=== PATIENT | female | born 1970 | race Caucasian/White ===

== ENCOUNTER 2017-01-22 13:33 | Emergency (ER) | payer BC ==
[~2017-01-22] VITALS: Ht 160 cm; Wt 70.0 kg
[~2017-01-22 13:33] MED LIST: AMIO200T2 PO; ASPI-535 PO; LEVO50TA74 PO; PARO20TA58 PO
[2017-01-22 13:37] VITALS: Ht 160 cm; Wt 70.0 kg
[2017-01-22] MEDS ORDERED: ONDANSETRON (ODT) 4 MG TAB ODT STA (13:51)
[2017-01-22] MEDS ORDERED: IBUPROFEN 200 MG TAB PO ONE (14:00)
[2017-01-22] MEDS ORDERED: HYDROCODONE/APAP (5/325) TAB PO ONE (14:00)
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
--- NOTE | 2017-01-22 15:29 | RADRPT ---
PROCEDURE: XR cervical spine CLINICAL INDICATION: The seen TECHNIQUE: 2 radiographs were obtained of the cervical spine. COMPARISON: None FINDINGS: The study is limited in that the odontoid and C1 are not included in the lateral projection and are not adequately seen on the frontal projection . Alignment: is normal without subluxation. The atlantoaxial relationship is not evaluated. Disk spaces: There is relative loss of disk height at C6-C7 and C7-T1 with mild anterior and posteri or spondylosis on the endplates. Osseous structures : appear intact with no fracture or destructive process identified. Soft tissues: are unremarkable. IMPRESSION: 1. Limited study due to lack of visualization of C1 as well as superior C2. 2. Degenerative disk and endplate changes noted at C6-C7 and at C7-T1. 3. No fracture is seen within the visualized osseous elements and the visualized osseous elements a lign satisfactorily. Physician Mami Date Time Electronically viewed and signed by Physician Mami on 01/22/2017 15:29 /
[2017-01-22] MEDS ORDERED: IBUP400T22 PO (15:36)
[2017-01-22] MEDS ORDERED: DOCU-144 PO (15:36)
[2017-01-22] MEDS ORDERED: HYDR-906 PO (15:36)
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
== END 2017-01-22 15:55 | disposition home or self-care (01) ==
LOC: FTE 13:33
DX: S49.92XA Unspecified injury of left shoulder and upper arm, initial encounter (principal); R07.9 Chest pain, unspecified; V49.40XA Driver injured in collision with unspecified motor vehicles in traffic accident, initial encounter; Z79.82 Long term (current) use of aspirin
CPT/HCPCS: 29125; 71010; 72040; 73060; 73110; Z7610

== ENCOUNTER 2017-05-04 13:08 | Emergency (ER) | payer BC ==
[~2017-05-04] VITALS: Ht 162.6 cm; Wt 57.0 kg
[~2017-05-04 13:08] MED LIST changes: +DOCU-144 PO; +HYDR-906 PO; +IBUP400T22 PO
[2017-05-04 13:09] VITALS: Ht 162.6 cm; Wt 57.0 kg
[2017-05-04] MEDS ORDERED: AMO500 PO (14:39)
[2017-05-04] MEDS ORDERED: IBUP400T22 PO (14:39)
--- NOTE | 2017-05-05 06:32 | ERD ---
ER Documentation Chief Complaint Date/Time DATE: 05/05/17 TIME: 06:24 Chief Complaint RIGHT EAR PAIN TODAY HPI This is a 47 year old presents to ER with right ear pain starting today. Patient reports pain being 8/10 to right ear and describes pain as constant and throbbing. No otorrhea. No foreign body sensation. No skin changes. No trauma. Patient denies nasal congestion or sneezing. No fevers or chills. Patient did not take any medications today. Patient states she has had a diagnosis of tympanic membrane rupture and has a follow up appointment with Dr. Harpal Chirinos in May 2017. ROS All systems reviewed and are negative except as per history of present illness. Medications Home Meds Active Scripts Ibuprofen* (Motrin*) 400 Mg Tab, 400 MG PO Q6, #15 TAB Prov:ANTHONY ERVIN NP 05/04/17 Amoxicillin* (Amoxicillin*) 500 Mg Cap, 500 MG PO BID for 7 Days, CAP Prov:ANTHONY ERVIN NP 05/04/17 Docusate Sodium* (Colace*) 100 Mg Capsule, 100 MG PO BID, #20 CAP Prov:AMA RUEDA MD 01/22/17 Ibuprofen* (Motrin*) 400 Mg Tab, 400 MG PO Q6, #20 TAB Prov:AMA RUEDA MD 01/22/17 Hydrocodone/Acetaminophen ([place] 5-325 Tablet) 1 Each Tablet, 1 TAB PO Q6H Y for PAIN, #14 TAB Prov:AMA RUEDA MD 01/22/17 Reported Medications Paroxetine Hcl* (Paxil*) 20 Mg Tablet, 20 MG PO DAILY, TAB 04/22/14 Aspirin Ec (Aspir 81) 81 Mg Tablet.dr, 81 MG PO 04/22/14 Levothyroxine Sodium* (Levothyroxine Sodium*) 50 Mcg Tablet, 50 MCG PO AC BREAKFAST, TAB 04/22/14 Amiodarone Hcl* (Amiodarone Hcl*) 200 Mg Tablet, 200 MG PO DAILY, TAB 04/22/14 Allergies Allergies: Coded Allergies: No Known Allergy (Unverified , 04/22/14) PMhx/Soc History of Surgery: No Anesthesia Reaction: No Hx Neurological Disorder: No Hx Respiratory Disorders: No Hx Cardiac Disorders: Yes (AFIB) Hx Psychiatric Problems: No Hx Miscellaneous Medical Probl: Yes (THYROID; ) Hx Alcohol Use: No Hx Substance Use: No Hx Tobacco Use: No Physical Exam Vitals Vital Signs Date Time Temp Pulse Resp B/P Pulse Ox O2 Delivery O2 Flow Rate FiO2 05/04/17 13:09 98.3 80 20 102/67 99 Physical Exam Const: No acute distress, alert Head: Atraumatic Eyes: Normal Conjunctiva ENT: Normal External Ears, Nose and Mouth. right ear with erythematous ear canal. left ear with normal TM and normal ear canal. No drainage. No erythema or exudate posterior pharynx. Neck: Full range of motion..~ No meningismus. Resp: Clear to auscultation bilaterally. No wheezing, rhonchi or crackles. Cardio: Regular rate and rhythm, no murmurs Abd: Soft, non tender, non distended. Normal bowel sounds Skin: No petechiae or rashes Back: No midline or flank tenderness Ext: No cyanosis, or edema Neur: Awake and alert Psych: Normal Mood and Affect Procedures/MDM MDM: This is a 39-year-old female presenting to the emergency department with right ear pain 1 day. Physical exam reveals erythematous right ear canal. Patient is afebrile. No otorrhea. No skin changes or abscess. Patient states she was diagnosed with ruptured tympanic membrane and has appointment to see ENT specialist Dr. Harpal Chirinos in May 2017. Low suspicion for mastoiditis. Differential diagnosis includes but not limited to otitis media, otitis externa, pharyngitis, laryngitis, bronchitis or URI. Patient is appropriate for outpatient management and will be given prescription for amoxicillin and ibuprofen. Instructed patient to follow-up with PCP or ENT specialist in the next week for reassessment and additional management. Return to ED for any high fever, chest pain, difficulty breathing, shortness breath, wheezing, vomiting, diarrhea, abdominal pain or any new or worsening symptoms. Patient verbalizes understanding. All questions answered at discharge. Departure Diagnosis: Primary Impression: Right ear pain Condition: Stable Patient Instructions: Otitis Media, Abx Tx (Adult) Referrals: MARIANNA FERGUSON (PCP) HARPAL CHIRINOS M.D. Additional Instructions: Call your primary care doctor TOMORROW for an appointment during the next 2-3 days.See the doctor sooner or return here if your condition worsens before your appointment time. Return to ED for any high fever, chest pain, difficulty breathing, shortness breath, wheezing, vomiting, diarrhea, abdominal pain or any new or worsening symptoms. ANTHONY ERVIN NP May 05, 2017 06:32
== END 2017-05-04 15:15 | disposition home or self-care (01) ==
LOC: FTE 13:08
DX: H92.01 Otalgia, right ear (principal); Z79.82 Long term (current) use of aspirin
CPT/HCPCS: 99283

== ENCOUNTER 2017-05-18 21:52 | Emergency (ER) | payer BC ==
[~2017-05-18] VITALS: Ht 170.2 cm; Wt 59.0 kg
[~2017-05-18 21:52] MED LIST changes: +AMO500 PO
[2017-05-18 21:54] VITALS: Ht 170.2 cm; Wt 59.0 kg
--- NOTE | 2017-05-18 23:56 | ERD ---
ER Documentation Chief Complaint Date/Time DATE: 05/18/17 TIME: 23:53 Chief Complaint left leg pain x 1 day, denies injury HPI 47 -year-old female presents here in emergency department for complaints of left lower leg bruising and pain 30 today. Patient cannot remember hitting it with something. Patient does not have multiple varicosities in the left lower leg. Patient denies any swelling. Patient's complaining of pain throbbing pain 6 /10 scale, is worse upon touching the area. Patient denies any numbness or tingling. Patient denies any fever or chills. ROS All systems reviewed and are negative except as per history of present illness. Medications Home Meds Active Scripts Ibuprofen* (Motrin*) 400 Mg Tab, 400 MG PO Q6, #15 TAB Prov:ANTHONY ERVIN NP 05/04/17 Amoxicillin* (Amoxicillin*) 500 Mg Cap, 500 MG PO BID for 7 Days, CAP Prov:ANTHONY ERVIN NP 05/04/17 Docusate Sodium* (Colace*) 100 Mg Capsule, 100 MG PO BID, #20 CAP Prov:AMA RUEDA MD 01/22/17 Ibuprofen* (Motrin*) 400 Mg Tab, 400 MG PO Q6, #20 TAB Prov:AMA RUEDA MD 01/22/17 Hydrocodone/Acetaminophen ([place] 5-325 Tablet) 1 Each Tablet, 1 TAB PO Q6H Y for PAIN, #14 TAB Prov:AMA RUEDA MD 01/22/17 Reported Medications Paroxetine Hcl* (Paxil*) 20 Mg Tablet, 20 MG PO DAILY, TAB 04/22/14 Aspirin Ec (Aspir 81) 81 Mg Tablet.dr, 81 MG PO 04/22/14 Levothyroxine Sodium* (Levothyroxine Sodium*) 50 Mcg Tablet, 50 MCG PO AC BREAKFAST, TAB 04/22/14 Amiodarone Hcl* (Amiodarone Hcl*) 200 Mg Tablet, 200 MG PO DAILY, TAB 04/22/14 Allergies Allergies: Coded Allergies: No Known Allergy (Unverified , 04/22/14) PMhx/Soc History of Surgery: No Anesthesia Reaction: No Hx Neurological Disorder: No Hx Respiratory Disorders: No Hx Cardiac Disorders: Yes (AFIB) Hx Psychiatric Problems: No Hx Miscellaneous Medical Probl: Yes (THYROID; ) Hx Alcohol Use: No Hx Substance Use: No Hx Tobacco Use: No Smoking Status: Never smoker FmHx Family History: No coronary disease, No diabetes, No other Physical Exam Vitals Vital Signs Date Time Temp Pulse Resp B/P Pulse Ox O2 Delivery O2 Flow Rate FiO2 05/18/17 21:54 99.8 70 20 130/69 100 Physical Exam GENERAL: The patient is well developed and appropriate for usual state of health, in no apparent distress. CHEST: Clear to auscultation bilaterally. There are no rales, wheezes or rhonchi. HEART: Regular rate and rhythm. No murmurs, clicks, rubs or gallops. No S3 or S4. ABDOMEN: Soft, nontender and nondistended. Good bowel sounds. No rebound or guarding. No gross peritonitis. No gross organomegaly or masses. No Loya sign or McBurney point tenderness. BACK: No midline or flank tenderness. EXTREMITIES: Tenderness on palpation on the proximal area of the left lower leg , noted ecchymosis, no swelling noted, no redness noted. Able to do full range of motion of the left knee and the left ankle without any restriction. Equal pulses bilaterally. Full range of motion about the joints of the body. Grossly neurovascularly intact. NEURO: Alert and oriented. Cranial nerves 2-12 intact. Motor strength in all 4 extremities with 5/5 strength. Sensation grossly intact. Normal speech and gait. SKIN: There is no apparent rash or petechia. The skin is warm and dry. HEMATOLOGIC AND LYMPHATIC: There is no evidence of excessive bruising or lymphedema. No gross cervical, axillary, or inguinal lymphadenopathy. Results 24 hrs Current Medications Medications (Trade) Dose Ordered Sig/Tammy Route PRN Reason Start Time Stop Time Status Last Admin Dose Admin Tramadol HCl (Ultram) 50 mg ONCE ONCE PO 05/19/17 00:00 05/19/17 00:01 DC 05/18/17 23:54 Patient was given medication for pain here in emergency department, after treatment, patient verbalized feeling much better. Patient's pain is improved. PROCEDURE: Left tibia and fibula. CLINICAL INDICATION: Pain. TECHNIQUE: 4 views including AP and lateral views of the left tibia and fibula were obtained. COMPARISON: None. FINDINGS: There is no fracture, dislocation or bone destruction. The joint spaces are within normal limits. Bone mineralization is within normal limits. There is no radiopaque foreign body or abnormal calcification. IMPRESSION: No evidence of fracture. .Jonathon Collazo MD, MD Date Time Electronically viewed and signed by .Jonathon Collazo MD, MD on 05/19/2017 01:17 .T/ CC: ALYSA SOLIS NP Procedures/MDM Medical Decision Making: Patient's pain is most likely consistent with a contusion. There is no suspicion for neurovascular compromise. Patient has intact sensation and circulation of the affected extremity. There is low suspicion for septic arthritis. Patient does not have any fever. Radiology exams of the affected area does not show any fracture or dislocation. Disposition: Home. Patient is given prescription for ibuprofen for pain, Tramadol severe pain. Patient was advised to elevate the affected area and apply ice on affected area. Patient was advised that if symptoms are worse, numbness, tingling, high fever, unable to move joint, worsening symptoms, to return to emergency department immediately. Otherwise, patient is advised to follow up with the primary care doctor in 5-7 days for reevaluation of symptoms. Departure Diagnosis: Primary Impression: Contusion of leg Encounter type: initial encounter Laterality: left Qualified Code: S80.12XA - Contusion of leg, left, initial encounter Condition: Stable Patient Instructions: Contusion, Lower Extremity Additional Instructions: Patient is given prescription for ibuprofen for pain, Tramadol severe pain. Patient was advised to elevate the affected area and apply ice on affected area. Patient was advised that if symptoms are worse, numbness, tingling, high fever, unable to move joint, worsening symptoms, to return to emergency department immediately. Otherwise, patient is advised to follow up with the primary care doctor in 5-7 days for reevaluation of symptoms. ALYSA SOLIS NP May 18, 2017 23:56
[2017-05-19] MEDS ORDERED: traMADol 50 MG TAB PO ONE
--- NOTE | 2017-05-19 01:17 | RADRPT ---
PROCEDURE: Left tibia and fibula. CLINICAL INDICATION: Pain. TECHNIQUE: 4 views including AP and lateral views of the left tibia and fibula were obtained. COMPARISON: None. FINDINGS: There is no fracture, dislocation or bone destruction. The joint spaces are within normal limits. Bone mineralization is within normal limits. There is no radiopaque foreign body or abnormal calcif ication. IMPRESSION: No evidence of fracture. .Jonathon Collazo MD, MD Date Time Electronically viewed and signed by .Jonathon Collazo MD, on 05/19/2017 01:17 .T/
[2017-05-19] MEDS ORDERED: IBUP-1542 PO (01:45)
[2017-05-19] MEDS ORDERED: TRAM50TA2 PO (01:45)
[2017-05-19 02:19] VITALS: BP 112/71; PULSE 78; RESP 20; TEMP 99.8
== END 2017-05-19 02:20 | disposition home or self-care (01) ==
LOC: FTE 21:52
DX: S80.12XA Contusion of left lower leg, initial encounter (principal); X58.XXXA Exposure to other specified factors, initial encounter; Y92.9 Unspecified place or not applicable; Z79.82 Long term (current) use of aspirin
CPT/HCPCS: 73590; Z7502; Z7610

== ENCOUNTER 2017-12-14 05:28 | Day surgery (SDC) | END 2017-12-14 10:35 | disposition home or self-care (01) ==

== ENCOUNTER 2018-06-06 13:29 | Emergency (ER) | END 2018-06-06 17:18 | disposition home or self-care (01) ==